=== PATIENT | female | born 1980 | race Caucasian/White ===

== ENCOUNTER → 2019-09-26 | Outpatient (CLI) | payer BC, OTHER ==
[~2019-09-26] MED LIST: BUTA-234 PO; BUTA1TAB46 PO; CRS350T; CYCL5TAB PO; ENAL20TA PO; GABA100C; HYDR-3720; HYDR25TA4 PO; IBP800T PO; LISI-552 PO; ONDA4TAB8 PO; OXYC-272 PO; OXYC-465 PO; OXYC40TA49 PO; PROM12.59 PO; PROM25SU10 PR; SULF-106 PO; TIZA2CAP; TRM50T
--- NOTE | 2019-09-26 14:15 | Diagnostic Imaging Report ---
PROCEDURE: MRI left joint lower extremity without contrast. TECHNIQUE: Multiplanar, multisequence [id number] MRI of the left lower extremity was accomplished. INDICATION: Knee pain. COMPARISON: There are no prior studies available for comparison. FINDINGS: The sagittal proton dense fat-saturated series does show an area of abnormal signal involving the root and posterior horn of the medial meniscus. This would be consistent with a tear. The lateral meniscus is intact. The anterior and posterior cruciate ligaments, the quadriceps and the infrapatellar tendons, the collateral ligaments, the biceps femoris tendon, and the iliotibial band are intact. There is no sign of an injury to either the medial or lateral retinaculum. There is no abnormal signal arising from the osseous structures to indicate bone edema or a fracture. There is moderate degenerative disease of the medial compartment and mild degenerative changes involving the lateral compartment and the lateral aspect of the patellofemoral space. There is no abnormal signal arising from the osseous structures to suggest bone edema or a fracture. There is a small joint effusion present. There is also a 1.3 x 2.4 cm Clement's cyst. There is also a small amount of fluid interposed between the medial femoral condyle and the medial collateral ligament. IMPRESSION: 1. The posterior horn and the root of the medial meniscus are torn. 2. The lateral meniscus and the major ligaments and tendons show no sign of an acute injury. 3. 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 The knee joint is otherwise fairly well maintained. 4. There is no sign of an acute bony abnormality. 5. There is a small joint effusion present as well as a Clement's cyst. There is also a small amount of fluid interposed between the medial collateral ligament and the medial femoral condyle. Dictated by: Dictated on workstation # [id number]
== END ==
LOC: RAD 12:51
PROVIDERS: ATTEND Nurse Practitioner
DX: S83.242A Other tear of medial meniscus, current injury, left knee, initial encounter (principal); S83.282A Other tear of lateral meniscus, current injury, left knee, initial encounter; M17.12 Unilateral primary osteoarthritis, left knee; M25.462 Effusion, left knee; M71.22 Synovial cyst of popliteal space [Baker], left knee
CPT/HCPCS: 73721

== ENCOUNTER → 2020-07-25 | Outpatient (CLI) | payer SELFPAY ==
[~2020-07-25] MED LIST changes: +OXYC-556 PO
== END ==
LOC: LABNPT 05:38
PROVIDERS: ATTEND Orthopaedic Surgery
DX: Z01.812 Encounter for preprocedural laboratory examination (principal); Z20.828 Contact with and (suspected) exposure to other viral communicable diseases
CPT/HCPCS: 87635

== ENCOUNTER → 2021-12-31 | Outpatient (CLI) | payer BC ==
[~2021-12-31] MED LIST changes: -LISI-552 PO; +LISI20TA26 PO
--- NOTE | 2021-12-31 16:45 | Diagnostic Imaging Report ---
PROCEDURE: MR imaging cervical spine without contrast. TECHNIQUE: Multiplanar, multisequence MR imaging of the cervical spine was performed without contrast. INDICATION: Neck pain with radiculopathy in the bilateral upper extremities. COMPARISON: 08/07/2011 FINDINGS: There is mild reversal of the cervical lordosis centered at C4-C5. Vertebral body heights are preserved. No acute fracture is seen. There is no significant spondylolisthesis. There is mild multilevel disc height loss, most notable at C4-C5, C5-C6 and C6-C7. The spinal cord demonstrates no focal lesions. Surrounding soft tissues demonstrate no acute abnormality. C2-C3: No significant disc bulge. No spinal canal or foraminal stenosis. C3-C4: Mild posterior disc osteophyte complex. Mild spinal canal narrowing. Small right perineural cyst measuring 4 mm. Otherwise, no significant foraminal stenosis. C4-C5: Posterior disc osteophyte complex. Moderate spinal canal stenosis. No cord signal changes. Mild left foraminal narrowing. Right perineural cyst measuring 5 mm. Left perineural cyst measuring 4 mm. C5-C6: Posterior disc osteophyte complex causing moderate to severe spinal canal stenosis. No cord signal changes. Mild right and moderate left foraminal stenosis. 7 mm right perineural cyst and 6 mm left perineural cyst. C6-C7: Posterior disc osteophyte complex. Moderate to severe spinal canal stenosis. No cord signal changes. Moderate right and mild left foraminal stenosis. 7 mm right perineural cyst. C7-T1: No significant disc bulge. No spinal canal or foraminal stenosis. IMPRESSION: 1. Moderate degenerative changes in the cervical spine with multilevel spinal canal and foraminal stenosis as described above. There are also multilevel bilateral perineural cysts in the foramina. Dictated by: Dictated on workstation # [id number]
== END ==
LOC: RAD 13:15
PROVIDERS: ATTEND Internal Medicine
DX: M47.22 Other spondylosis with radiculopathy, cervical region (principal); M48.02 Spinal stenosis, cervical region; M25.78 Osteophyte, vertebrae; G96.191 Perineural cyst
CPT/HCPCS: 72141

== ENCOUNTER → 2022-03-05 | Outpatient (CLI) | payer BC ==
[~2022-03-05] MED LIST changes: +CATHETER FLUSH 10 ML SYR IV PRN; +HOLD METFORMIN - RECEIVED CONTRAST 20 ML VIAL IV SCH; +IOHEXOL 350 MG/ML 100 ML (OMNIPAQUE 350) VIAL IV ONE; +NS 100 ML (IVPB) BAG IV ONE; +RT-ALBUTEROL SULF 2.5 MG/3 ML PRE-MIX VIAL INH ONE
--- NOTE | 2022-03-05 10:41 | Diagnostic Imaging Report ---
INDICATION: Hemoptysis, difficulty breathing and fatigue. TECHNIQUE: Multiple contiguous axial images were obtained through the chest after administration of intravenous contrast. Auto Exposure Controls were utilized during the CT exam to meet ALARA standards for radiation dose reduction. COMPARISON: There is no prior chest CT for comparison. There are no enlarged mediastinal or hilar nodes. There are a few borderline-sized axillary nodes of questionable significance, the largest measured about a centimeter. There is no pleural or pericardial fluid. Visualized portions of the upper abdomen demonstrate mild fatty infiltration of the liver. Lung parenchymal windows demonstrate no pulmonary nodules or infiltrates. Small density in the trachea posteriorly likely represents mucoid secretions. IMPRESSION: No pulmonary parenchymal infiltrate or nodule. There is no significant mediastinal adenopathy or pleural fluid. There are a few borderline-sized nodes of questionable significance in the axillary regions. There is mild fatty change in the liver. There is a small intrinsic density in the posterior portion of the trachea, this likely represents mucoid secretions, consider follow-up if symptoms persist. Dictated by: Dictated on workstation # [id number]
== END ==
LOC: RAD 08:45
PROVIDERS: ATTEND Internal Medicine
DX: K76.0 Fatty (change of) liver, not elsewhere classified (principal); R04.2 Hemoptysis; R06.00 Dyspnea, unspecified
CPT/HCPCS: 71260; 94060; 94726; 94729